=== PATIENT | male | born 1995 | race American Indian/Alaskan Native ===

== ENCOUNTER 2017-04-18 19:51 | Emergency (ER) | payer OTHER ==
[2017-04-18 20:33] LABS: Basophils % (Auto) 0.2 % (0.0-1.8); Hematocrit 44.2 % (35.5-45.6); Hemoglobin 14.2 gm/dl (11.8-15.2); Mean Corpuscular HGB Conc 32 % (32-34); Mean Corpuscular Volume 73 fl (84-94); Platelet Count 142 K/mm3 (140-440); Red Blood Count 6.07 M/mm3 (3.65-5.03); Red Cell Distribution Width 15.2 % (13.2-15.2); White Blood Count 9.7 K/mm3 (4.5-11.0)
[2017-04-18 20:40] LABS: Mean Corpuscular Hemoglobin 23 pg (28-32)
[2017-04-18 20:49] LABS: Alanine Aminotransferase 98 units/L (7-56); Albumin 4.9 g/dL (3.9-5); Albumin/Globulin Ratio 1.5 %; Alkaline Phosphatase 38 units/L (35-129); Anion Gap 21 mmol/L; BUN/Creatinine Ratio 13.33; Blood Urea Nitrogen 12 mg/dL (9-20); Calcium 10.2 mg/dL (8.4-10.2); Carbon Dioxide 26 mmol/L (22-30); Chloride 97.7 mmol/L (98-107); Glucose 126 mg/dL (75-100); Lipase 22 units/L (13-60); Potassium 3.8 mmol/L (3.6-5.0); Sodium 141 mmol/L (137-145); Total Protein 8.2 g/dL (6.3-8.2)
[2017-04-18 21:01] LABS: Bilirubin,Urine NEG (Negative); Blood,Urine NEG (Negative); Ketones,Urine TR mg/dL (Negative); Leukocyte Esterase,Urine NEG (Negative); Mucus,Urine 3+ /HPF; Nitrite,Urine NEG (Negative); Urobilinogen,Urine < 2.0 mg/dL (<2.0)
[2017-04-19] MEDS ORDERED: ZOFRAN ODT PO ONE (00:35)
[2017-04-19] MEDS ORDERED: CARAFATE PO ONE (00:35)
[2017-04-19] MEDS ORDERED: BENTYL IM ONE (00:36)
[2017-04-19 01:45] VITALS: BP 136/62
--- NOTE | 2017-04-19 01:54 | Emergency Department Report ---
ED Abdominal Pain HPI - General Chief Complaint: Abdominal Pain Stated Complaint: VOMITING/POSS FOOD POISONING Time Seen by Provider: 04/19/17 01:04 Source: patient, family, RN notes reviewed Mode of arrival: Ambulatory Limitations: No Limitations - History of Present Illness Initial Comments: This is a 21-year-old male. He is previously unknown to me. He does not have a primary care doctor. He denies chronic medical conditions. No history of abdominal surgeries. Patient presents to the ER with epigastric abdominal pain, nausea, vomiting and diarrhea. The pain is achy, and does not radiate anywhere. There is no lower abdominal pain, there is no testicular pain, there is no irritative or obstructive urinary symptoms. Patient thinks that he has food poisoning. He reports multiple episodes of nonbloody, nonbilious emesis. He also describes brownish/yellow/green diarrhea. Reports that he recently ate fast food. No sick contacts. Nobody else has similar symptoms. His pain and symptoms do not change when he takes a hot shower. He reports that he is actually active with one female partner, who reports that he recently discontinued consumption of marijuana. MD Complaint: abdominal pain -: Gradual Location: epigastric Radiation: none Migration to: no migration Severity scale (0 -10): 0 Quality: cramping Consistency: intermittent Improves With: nothing Worsens With: nothing Context: possible food poisoning Associated Symptoms: nausea, vomiting, diarrhea. denies: dysuria - Related Data Previous Rx's Medication Instructions Recorded Last Taken Type Acetaminophen/Codeine [Tylenol #3] 1 tab PO Q6H PRN #12 tab 06/11/15 Unknown Rx Cyclobenzaprine [Flexeril 10 MG 10 mg PO Q8H PRN #21 tablet 06/11/15 Unknown Rx TAB] Dicyclomine [Bentyl] 10 mg PO QID PRN #20 capsule 04/19/17 Unknown Rx Famotidine [Pepcid] 20 mg PO QDAY #30 tablet 04/19/17 Unknown Rx Ondansetron [Zofran Odt] 4 mg PO QID PRN #20 tab.rapdis 04/19/17 Unknown Rx Allergies Allergy/AdvReac Type Severity Reaction Status Date / Time No Known Allergies Allergy Verified 04/19/17 01:05 ED Review of Systems ROS: Stated complaint: VOMITING/POSS FOOD POISONING Other details as noted in HPI Constitutional: malaise. denies: fever Eyes: denies: vision change ENT: denies: epistaxis Respiratory: denies: orthopnea Cardiovascular: denies: chest pain Gastrointestinal: abdominal pain, nausea, vomiting Genitourinary: denies: dysuria Musculoskeletal: denies: back pain Skin: denies: lesions Neurological: weakness ED Past Medical Hx - Past Medical History Previous Medical History?: No - Surgical History Past Surgical History?: No - Social History Smoking Status: Never Smoker Substance Use Type: None - Medications Home Medications: Home Medications Medication Instructions Recorded Confirmed Last Taken Type Acetaminophen/Codeine [Tylenol #3] 1 tab PO Q6H PRN #12 tab 06/11/15 Unknown Rx Cyclobenzaprine [Flexeril 10 MG 10 mg PO Q8H PRN #21 tablet 06/11/15 Unknown Rx TAB] Dicyclomine [Bentyl] 10 mg PO QID PRN #20 capsule 04/19/17 Unknown Rx Famotidine [Pepcid] 20 mg PO QDAY #30 tablet 04/19/17 Unknown Rx Ondansetron [Zofran Odt] 4 mg PO QID PRN #20 tab.rapdis 04/19/17 Unknown Rx ED Physical Exam - General Limitations: No Limitations General appearance: alert, in no apparent distress - Head Head exam: Present: atraumatic, normocephalic - Eye Eye exam: Present: normal appearance, EOMI. Absent: nystagmus - ENT ENT exam: Present: normal exam, normal orophraynx, mucous membranes moist, normal external ear exam - Neck Neck exam: Present: normal inspection, full ROM. Absent: tenderness, meningismus - Respiratory Respiratory exam: Present: normal lung sounds bilaterally. Absent: respiratory distress, wheezes, rales, rhonchi, stridor, chest wall tenderness, accessory muscle use, decreased breath sounds, prolonged expiratory - Cardiovascular Cardiovascular Exam: Present: normal rhythm, bradycardia, normal heart sounds. Absent: systolic murmur, diastolic murmur, rubs, gallop - GI/Abdominal GI/Abdominal exam: Present: soft, normal bowel sounds. Absent: distended, tenderness, guarding, rebound, rigid, pulsatile mass - Rectal Rectal exam: Present: deferred - exam: Present: normal inspection, other (escorted by commercial mortgage broker Page). Absent : testicular tenderness, scrotal swelling External exam: Present: normal external exam, other (there is no testicular tenderness. There is normal testicular lie bilaterally. There is normal cremasteric reflex bilaterally.) - Extremities Exam Extremities exam: Present: normal inspection, full ROM, normal capillary refill. Absent: pedal edema, joint swelling, calf tenderness - Back Exam Back exam: Present: normal inspection, full ROM. Absent: tenderness, CVA tenderness (R), CVA tenderness (L), muscle spasm, paraspinal tenderness, vertebral tenderness - Neurological Exam Neurological exam: Present: alert, oriented X3, normal gait, other. Absent: motor sensory deficit - Psychiatric Psychiatric exam: Present: normal affect, normal mood - Skin Skin exam: Present: warm, dry, intact, normal color. Absent: rash ED Course Vital Signs 04/18/17 04/19/17 04/19/17 20:02 00:56 01:44 Temperature 98.5 F 98.3 F Pulse Rate 53 L 62 Respiratory 16 18 16 Rate Blood Pressure 142/58 Blood Pressure 136/62 [Left] O2 Sat by Pulse 100 99 99 Oximetry 04/19/17 02:00 Temperature Pulse Rate Respiratory 18 Rate Blood Pressure Blood Pressure [Left] O2 Sat by Pulse Oximetry ED Medical Decision Making - Lab Data Result diagrams: 04/18/17 20:15 04/18/17 20:15 Vital Signs 04/18/17 04/19/17 04/19/17 20:02 00:56 01:44 Temperature 98.5 F 98.3 F Pulse Rate 53 L 62 Respiratory 16 18 16 Rate Blood Pressure 142/58 Blood Pressure 136/62 [Left] O2 Sat by Pulse 100 99 99 Oximetry Labs 04/18/17 04/18/17 04/18/17 20:15 20:15 20:29 WBC 9.7 RBC 6.07 H Hgb 14.2 Hct 44.2 MCV 73 L MCH 23 L MCHC 32 RDW 15.2 Plt Count 142 Lymph % (Auto) 7.6 L Kimble % (Auto) 3.1 Eos % (Auto) 0.0 Baso % (Auto) 0.2 Lymph # 0.7 L Kimble # 0.3 Eos # 0.0 Baso # 0.0 Seg Neutrophils % 89.1 H Seg Neutrophils # 8.6 H Sodium 141 Potassium 3.8 Carbon Dioxide 26 BUN 12 Creatinine 0.9 Estimated GFR > 60 BUN/Creatinine Ratio 13.33 Glucose 126 H Calcium 10.2 Total Bilirubin 0.60 AST 53 H ALT 98 H Alkaline Phosphatase 38 Total Protein 8.2 Albumin 4.9 Albumin/Globulin Ratio 1.5 Lipase 22 Urine Color Yellow Urine Turbidity Clear Urine pH 6.0 Ur Specific [place] 1.029 Urine Protein 30 mg/dl Urine Glucose (UA) 50 Urine Ketones Tr Urine Blood Neg Urine Nitrite Neg Urine Bilirubin Neg Urine Urobilinogen < 2.0 Ur Leukocyte Esterase Neg Urine WBC (Auto) 1.0 Urine RBC (Auto) 5.0 U Epithel Cells (Auto) < 1.0 Urine Mucus 3+ - Medical Decision Making Differential diagnosis: Hepatitis, GERD, gastritis, pancreatitis, viral syndrome Assessment and plan: 21-year-old male with epigastric pain, no tenderness, afebrile, reassuring vital signs, tolerating liquid feeds. No lower abdominal tenderness. No right upper quadrant tenderness. Nonspecific mild transaminitis. Has benign testicular examination. Chloride: 97.7 Patient will be discharged with pain medication, nausea medication, instructions to avoid acetaminophen and alcohol consumption, he can follow up with outpatient primary care. Critical care attestation.: If time is entered above; I have spent that time in minutes in the direct care of this critically ill patient, excluding procedure time. ED Disposition Clinical Impression: Transaminitis, Epigastric abdominal pain Disposition: TO HOME OR SELFCARE Is pt being admited?: No Does the pt Need Aspirin: No Condition: Stable Instructions: Viral Hepatitis A (ED), Viral Hepatitis C (ED), Viral Hepatitis B (ED) Additional Instructions: Avoid consumption of alcohol, acetaminophen, heavy/spicy foods. Take the pain medication, nausea medication as directed. Follow up with a primary care doctor within this next 7-10 days. I recommend outpatient testing for hepatitis. Return to the ER right away with new pain, worsened pain, migration of pain, fevers, chills, chest pain, confusion, intractable nausea or vomiting, inability to tolerate liquid feeds. Prescriptions: Dicyclomine [Bentyl] 10 mg PO QID PRN #20 capsule PRN Reason: Pain Famotidine [Pepcid] 20 mg PO QDAY #30 tablet Ondansetron [Zofran Odt] 4 mg PO QID PRN #20 tab.rapdis PRN Reason: Nausea Referrals: KRISTI SAMUEL MD [Primary Care Provider] - 3-5 Days Forms: Work/School Release Form(ED)
[2017-04-19] MEDS ORDERED: MOTRIN PO ONE ×2 (01:55→01:57)
== END 2017-04-19 02:00 | disposition home or self-care (01) ==
LOC: ED 19:51
DX: R74.0 Nonspecific elevation of levels of transaminase and lactic acid dehydrogenase [LDH] (principal); R10.13 Epigastric pain
CPT/HCPCS: 36415; 80053; 81001; 83690; 85025; 96372; 99283; J0500; Q0162

== ENCOUNTER 2018-11-04 16:41 | Emergency (ER) | payer OTHER ==
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
[2018-11-04 17:02] VITALS: BP 135/51
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
[2018-11-04] MEDS ORDERED: NORCO 5/325 PO ONE (18:20)
[2018-11-04] MEDS ORDERED: FLEXERIL PO ONE (18:20)
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
== END 2018-11-04 19:35 | disposition home or self-care (01) ==
LOC: ED 16:41
DX: S16.1XXA Strain of muscle, fascia and tendon at neck level, initial encounter (principal); M54.5 Low back pain; R07.81 Pleurodynia; V49.49XA Driver injured in collision with other motor vehicles in traffic accident, initial encounter; Y93.89 Activity, other specified; Y92.410 Unspecified street and highway as the place of occurrence of the external cause; Y99.8 Other external cause status
CPT/HCPCS: 72040; 72100; 99283